=== PATIENT | male | born 1990 | race Caucasian/White ===

== ENCOUNTER 2019-07-02 09:28 | Emergency (ER) | payer SELFPAY ==
[~2019-07-02] VITALS: Ht 172 cm; Wt 63.6 kg
--- NOTE | 2019-07-02 09:58 | NUR ---
Patients significant other advises that the patient has been experiencing behavior and anger issues for several months but that episodes have become progressively worse. Patients signifcant other advises that the patient has been experiencing episodes of panic that results in the patient frequently calling her and always wanting to know where she is. The patient advises that he is currently living in [place] and is commuting to [place] on the weekends for work. 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 He advises increased stress with the situation changes and that he is currently living with family members in [place] and does feel safe. When he returns to [place] he stays with his significant other. His significant other advises that they have a house together in [place] and that the location where he stays in [place] is a place where the patient does not need to be. She advises the patient stays with his family of whom are all drug addicts. She advises that the last time the patient smoked methamphetamine was approximately 1 week ago. She advised that she is the only support system that the patient has but that she is starting to fear the patient and wants him to seek help. She advised that she has kids and that the outbursts cannot continue. The patient denies suicidal ideations but the significant other advises the patient calls her frequently and states that he hates his life and that he wants to . Patient advises that he has not been eating or sleeping well and the last time he ate was last night.
[2019-07-02 10:01] LABS: BASOPHILS # (AUTO) 0.1 10^3/uL (0.0-0.1); BASOPHILS % (AUTO) 1 % (0-10); EOSINOPHILS # (AUTO) 0.1 10^3/uL (0.0-0.3); EOSINOPHILS % (AUTO) 1 % (0-10); HEMATOCRIT 42 % (40-54); HEMOGLOBIN 14.2 G/DL (13.3-17.7); LYMPHOCYTES % (AUTO) 24 % (12-44); MEAN CORPUSCULAR HEMOGLOBIN 30 PG (25-34); MEAN CORPUSCULAR HGB CONC 34 G/DL (32-36); MEAN CORPUSCULAR VOLUME 87 FL (80-99); MEAN PLATELET VOLUME 9.2 FL (7.4-10.4); MONOCYTES # (AUTO) 0.7 X 10^3 (0.0-1.0); MONOCYTES % (AUTO) 9 % (0-12); NEUTROPHILS # (AUTO) 5.4 X 10^3 (1.8-7.8); NEUTROPHILS % (AUTO) 65 % (42-75); PLATELET COUNT 271 10^3/uL (130-400); RED CELL DISTRIBUTION WIDTH 13.2 % (10.0-14.5); WHITE BLOOD COUNT 8.4 10^3/uL (4.3-11.0)
[2019-07-02 10:04] LABS: BILIRUBIN,URINE NEGATIVE (NEGATIVE); CLARITY,URINE CLEAR; COLOR,URINE YELLOW; GLUCOSE, URINE (UA) NEGATIVE (NEGATIVE); KETONES,URINE NEGATIVE (NEGATIVE); LEUKOCYTE ESTERASE ,URINE 1+ (NEGATIVE); NITRITE,URINE NEGATIVE (NEGATIVE); PH,URINE 5 (5-9); PROTEIN,URINE 1+ (NEGATIVE)
--- NOTE | 2019-07-02 10:10 | NUR ---
Patients significant other left the department advised she was going to the car or to the waiting room while Dr. Small examined the patient, she felt he might be more forthcoming with information if she was not in the room.
--- NOTE | 2019-07-02 10:15 | NUR ---
The patient was advised by Dr. Small that it would take 30minutes to and hour for results to return and the patient then stated he needed to go back to [place] and left the department.
[2019-07-02 10:16] LABS: ALANINE AMINOTRANSFERASE 14 U/L (0-55); ALBUMIN 4.4 GM/DL (3.2-4.5); ALKALINE PHOSPHATASE 68 U/L (40-136); BILIRUBIN,TOTAL 0.5 MG/DL (0.1-1.0); BUN/CREATININE RATIO 10; CALCIUM 9.2 MG/DL (8.5-10.1); CARBON DIOXIDE 22 MMOL/L (21-32); CHLORIDE 109 MMOL/L (98-107); CREATININE SERUM 0.81 MG/DL (0.60-1.30); GFR ESTIMATED > 60; GLUCOSE 92 MG/DL (70-105); POTASSIUM 3.8 MMOL/L (3.6-5.0); SALICYLATE < 5.0 MG/DL (5.0-20.0); SODIUM 140 MMOL/L (135-145)
[2019-07-02 10:34] LABS: ACETAMINOPHEN < 10 UG/ML (10-30)
[2019-07-02 10:36] LABS: TSH (THYROID ANALYZER) 1.73 UIU/ML (0.35-4.94)
[2019-07-02 10:37] LABS: AMPHETAMINE SCREEN, URINE POSITIVE (NEGATIVE); CANNABINOID SCREEN, URINE POSITIVE (NEGATIVE); METHAMPHETAMINE SCREEN URINE S POSITIVE (NEGATIVE)
[2019-07-02 10:38] LABS: BARBITURATE SCREEN URINE NEGATIVE (NEGATIVE); BENZODIAZEPINES SCREEN URINE NEGATIVE (NEGATIVE); COCAINE SCREEN URINE NEGATIVE (NEGATIVE); METHADONE STAT NEGATIVE (NEGATIVE); OPIATE SCREEN URINE NEGATIVE (NEGATIVE); OXYCODONE STAT NEGATIVE (NEGATIVE); PROPOXYPHENE STAT NEGATIVE (NEGATIVE); TRICYCLIC ANTIDEPRESSANTS SCRE NEGATIVE (NEGATIVE)
--- NOTE | 2019-07-02 10:40 | NUR ---
The patient returned with his significant other to the ER for further evaluation.
[2019-07-02 10:41] LABS: BACTERIA,URINE FEW /HPF
[2019-07-02 10:42] LABS: SQUAMOUS EPITHELIAL CELL,UR RARE /HPF
--- NOTE | 2019-07-02 11:06 | NUR ---
[facility] will be sending someone out for evaluation eta 30 minutes.
--- NOTE | 2019-07-02 11:48 | NUR ---
[employer] sales representative Jacey has arrived.
--- NOTE | 2019-07-02 12:05 | NUR ---
Patient spoke with [facility] and denies suicidal ideations and states he only wanted the contact information for services. Patient left the department shortly after the field sales trainer left the room.
[2019-07-02 12:17] VITALS: BP 131/97
--- OUTSIDE RECORDS SUMMARY | 2019-07-22 20:15 | XMS REPORT | Continuity of Care Document ---
Author Organization Unknown Address Unknown Phone Unavailable Allergies There is no data. Medications There is no data. Problems There is no data. Procedures There is no data. Results Test Result Range Complete blood count (CBC) with automated white blood cell (WBC) differential - 07/02/19 09:45 Blood leukocytes automated count (number/volume) 8.4 10*3/uL 4.3-11.0 Blood erythrocytes automated count (number/volume) 4.78 10*6/uL 4.35-5.85 Venous blood hemoglobin measurement (mass/volume) 14.2 g/dL 13.3-17.7 Blood hematocrit (volume fraction) 42 % 40-54 Automated erythrocyte mean corpuscular volume 87 [foz_us] 80-99 Automated erythrocyte mean corpuscular hemoglobin (mass per erythrocyte) 30 pg 25-34 Automated erythrocyte mean corpuscular hemoglobin concentration measurement (mass/volume) 34 g/dL 32-36 Automated erythrocyte distribution width ratio 13.2 % 10.0- 14.5 Automated blood platelet count (count/volume) 271 10*3/uL 130-400 Automated blood platelet mean volume measurement 9.2 [foz_us] 7.4-10.4 Automated blood neutrophils/100 leukocytes 65 % 42-75 Automated blood lymphocytes/100 leukocytes 24 % 12-44 Blood monocytes/100 leukocytes 9 % 0-12 Automated blood eosinophils/100 leukocytes 1 % 0-10 Automated blood basophils/100 leukocytes 1 % 0-10 Blood neutrophils automated count (number/volume) 5.4 10*3 1.8-7.8 Blood lymphocytes automated count (number/volume) 2.0 10*3 1.0-4.0 Blood monocytes automated count (number/volume) 0.7 10*3 0.0- 1.0 Automated eosinophil count 0.1 10*3/uL 0.0-0.3 Automated blood basophil count (count/volume) 0.1 10*3/uL 0.0-0.1 Comprehensive metabolic panel - 07/02/19 09:45 Serum or plasma sodium measurement (moles/volume) 140 mmol/L 135-145 Serum or plasma potassium measurement (moles/volume) 3.8 mmol/L 3.6-5.0 Serum or plasma chloride measurement (moles/volume) 109 mmol/L 98-107 Carbon dioxide 22 mmol/L 21-32 Serum or plasma anion gap determination (moles/volume) 9 mmol/L 5-14 Serum or plasma urea nitrogen measurement (mass/volume) 8 mg/dL 7-18 Serum or plasma creatinine measurement (mass/volume) 0.81 mg/dL 0.60-1.30 Serum or plasma urea nitrogen/creatinine mass ratio 10 NRG Serum or plasma creatinine measurement with calculation of estimated glomerular filtration rate > NRG Serum or plasma glucose measurement (mass/volume) 92 mg/dL 70-105 Serum or plasma calcium measurement (mass/volume) 9.2 mg/dL 8.5-10.1 Serum or plasma total bilirubin measurement (mass/volume) 0.5 mg/dL 0.1-1.0 Serum or plasma alkaline phosphatase measurement (enzymatic activity/volume) 68 U/L 40-136 Serum or plasma aspartate aminotransferase measurement (enzymatic activity/volume) 19 U/L 5-34 Serum or plasma alanine aminotransferase measurement (enzymatic activity/volume) 14 U/L 0-55 Serum or plasma protein measurement (mass/volume) 7.0 g/dL 6.4-8.2 Serum or plasma albumin measurement (mass/volume) 4.4 g/dL 3.2-4.5 CALCIUM CORRECTED 8.9 mg/dL 8.5-10.1 Serum or plasma thyrotropin measurement by detection limit <=0.05 miu/l (units/volume) - 07/02/19 09:45 Serum or plasma thyrotropin measurement by detection limit <=0.05 miu/l (units/volume) 1.73 u[iU]/mL 0.35-4.94 Serum or plasma salicylates measurement (mass/volume) - 07/02/19 09:45 Serum or plasma salicylates measurement (mass/volume) < mg/dL 5.0-20.0 Serum or plasma acetaminophen measurement (mass/volume) - 07/02/19 09:45 Serum or plasma acetaminophen measurement (mass/volume) < ug/mL 10-30 Serum or plasma ethanol measurement (mass/volume) - 07/02/19 09:45 Serum or plasma ethanol measurement (mass/volume) < mg/dL <10 Urine drug screening test - 07/02/19 09:50 Urine phencyclidine detection by screening method NEGATIVE NEGATIVE Urine benzodiazepines detection by screening method NEGATIVE NEGATIVE Urine cocaine detection NEGATIVE NEGATIVE Urine amphetamines detection by screening method POSITIVE NEGATIVE Urine methamphetamine detection by screening method POSITIVE NEGATIVE Urine cannabinoids detection by screening method POSITIVE NEGATIVE Urine opiates detection by screening method NEGATIVE NEGATIVE Urine barbiturates detection NEGATIVE NEGATIVE Screening urine tricyclic antidepressants detection NEGATIVE NEGATIVE Urine methadone detection by screening method NEGATIVE NEGATIVE Urine oxycodone detection NEGATIVE NEGATIVE Urine propoxyphene detection NEGATIVE NEGATIVE Complete urinalysis with reflex to culture - 07/02/19 09:50 Urine color determination YELLOW NRG Urine clarity determination CLEAR NRG Urine pH measurement by test strip 5 5-9 Specific gravity of urine by test strip 1.025 1.016-1.022 Urine protein assay by test strip, semi-quantitative 1+ NEGATIVE Urine glucose detection by automated test strip NEGATIVE NEGATIVE Erythrocytes detection in urine sediment by light microscopy NEGATIVE NEGATIVE Urine ketones detection by automated test strip NEGATIVE NEGATIVE Urine nitrite detection by test strip NEGATIVE NEGATIVE Urine total bilirubin detection by test strip NEGATIVE NEGATIVE Urine urobilinogen measurement by automated test strip (mass/volume) NORMAL NORMAL Urine leukocyte esterase detection by dipstick 1+ NEGATIVE Automated urine sediment erythrocyte count by microscopy (number/high power field) NONE NRG Automated urine sediment leukocyte count by microscopy (number/high power field) [HPF] NRG Bacteria detection in urine sediment by light microscopy FEW NRG Squamous epithelial cells detection in urine sediment by light microscopy RARE NRG Crystals detection in urine sediment by light microscopy NONE NRG Casts detection in urine sediment by light microscopy NONE NRG Mucus detection in urine sediment by light microscopy LARGE NRG Complete urinalysis with reflex to culture NO NRG Encounters ACCT No. Visit Date/Time Discharge Status Pt. Type Provider Facility Loc./Unit Complaint [id number] 07/02/2019 09:29:00 07/02/2019 12:19:00 DIS Emergency JAMEY CHAND DO [facility] ER BEHAVIORAL/ANGER ISSUES
--- NOTE | 2019-08-05 18:22 | ED Psychosocial ---
General Chief Complaint: Psych/Social Disorder Stated Complaint: BEHAVIORAL/ANGER ISSUES Nursing Triage Note: Patient has been experiencing behavior issues that have become progressively worse. See notes. Source: patient (WANTS GIRLFRIEND TO DO MOST OF TALKING FOR PT), other (GIRLFR IEND DOES MOST OF TALKING, PT DOES NOT WANT TO TALK) History of Present Illness Date Seen by Provider: Jul 02, 2019 Time Seen by Provider: 09:50 Initial Comments PT ARRIVES VIA EMS WITH GIRLFRIEND PT STATES HE LIVES IN [place], HAS BEEN COMING HERE ON WEEKENDS, HIS GIRLFRIEND RECENTLY MOVED HERE--THEY HAVE BEEN TOGETHER A YEAR. STATES HE "IS FINE, THEN NOT FINE" AND "HAS OUTBURSTS" GIRLFRIEND REPORTS THAT HE CALLS HER CONSTANTLY TO "CHECK IN ON HER" GIRLFRIEND REPORTS THAT "SHE IS STARTING TO GET SCARED OF HIM" SHE ALSO REPORTS THAT HE REPEATEDLY TELLS HER THAT HE HATES HIS LIFE AND SOMETIMES HE WANTS TO --PT DENIES THIS TO ME. 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 STATES THAT ALL OF HIS FAMILY IN [place] ARE ON DRUGS, AND HE CAN'T STOP USING IF HE IS AROUND THEM STATES HE CANNOT MOVE HERE TO [place] NOW, DUE TO HIS JOB IN [place]. GIRLFRIEND STATES SHE MOVED HERE TO GET AWAY FROM ALL OF THAT, AND STATES THAT SHE CAN'T HAVE HER YOUNG CHILDREN AROUND ALL OF THIS. STATES "NOW HE HAS 3 DIFFERENT PERSONALITIES AND NOW IT'S MINUTES" "HE GETS ANGRY AND MAD AND THEN CHANGES INTO A LITTLE BABY, AND STARTS SHAKING, THEN HE DOESN'T REMEMBER BEING ANGRY, AND IT KEEPS REPEATING IN CYCLES" PT DENIES USING METH IV, STATES THAT HE HAD TRIED TO GO FOR 2 WEEKS WITHOUT USING, BUT FOR THE LAST 2 WEEKS HE HAS USED IT EVERY DAY. STATES HE ALSO USES THC ON DAILY BASIS. PT DENIES ALCOHOL USE. Allergies and Home Medications Patient Home Medication List Home Medication List Reviewed: Yes Review of Systems Constitutional: see HPI Psychiatric/Neurological: See HPI Past Eqniobc-[id number]-[id number] Hx Past Med/Social Hx: Reviewed and Corrections made Patient Social History Alcohol Use: Denies Use Recreational Drug Use: Yes (THC, METH, DENIES IV USE) Drug of Choice: THC, METH, DENIES IV USE Smoking Status: Current Everyday Smoker (1 PPD) Type Used: Cigarettes (1 PPD) Recent Foreign Travel: No Contact w/Someone Who Travel: No Recent Infectious Disease Expo: No Recent Hopitalizations: No Seasonal Allergies Seasonal Allergies: No Past Medical History Surgeries: No Respiratory: No Cardiac: No Neurological: No Genitourinary: No Gastrointestinal: No Musculoskeletal: No Endocrine: No HEENT: No Cancer: No Psychosocial: Yes (POLYSUBSTANCE ABUSE) Anxiety Integumentary: No Blood Disorders: No Adverse Reaction/Blood Tranf: No Physical Exam Capillary Refill : Less Than 3 Seconds Height, Weight, BMI Height: '" Weight: lbs. oz. kg; 21.00 BMI Method: General Appearance: thin, other (ANXIOUS, CONSTANT MOVEMENTS, VERY EMOTIONALLY LABILE, CRYING AT TIMES. 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 II-XII nml as tested, no motor/sensory deficits, alert, oriented x 3 Appearance/Memory: disheveled Thoughts/Hallucinations: no apparent hallucination Skin: normal color, warm/dry Progress/Results/Core Measures Results/Orders Blood Pressure Mean: 108 Progress Progress Note : Progress Note 1010--PT LEFT THE ER, STATING HE HAS TO GET BACK TO [place] 1035--PT IS BACK IN ROOM NOW, AND IS AGREEABLE TO TESTING AND TRYING TO GET HELP 1148--[facility] IS HERE 1158--GREGG , CRISIS ASBESTOS 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 SHE HAS GIVEN HIM INFORMATION ABOUT SERVICES AVAILABLE. 1200--BOTH PT AND GIRLFRIEND LEFT THE ER, WITHOUT INSTRUCTIONS, AND BOTH LEFT AND WALKED OUT DOWN DIFFERENT HALLWAYS Initial ECG Impression Date: Jul 02, 2019 Initial ECG Impression Time: 09:42 Initial ECG Rate: 83 Initial ECG Rhythm: Normal Sinus Initial ECG Comparisson: No Previous ECG Available Departure Impression Primary Impression: Methamphetamine addiction Additional Impressions: Labile mood Marijuana use Disposition: 01 HOME, SELF-CARE Condition: Improved Departure-Patient Inst. Referrals: NO,LOCAL PHYSICIAN (PCP) Primary Care Physician JAMEY CHAND DO Aug 05, 2019 18:22
== END 2019-07-02 12:19 | disposition home or self-care (01) ==
LOC: ER 09:29
DX: F15.20 Other stimulant dependence, uncomplicated (principal); R45.86 Emotional lability; F12.90 Cannabis use, unspecified, uncomplicated; F17.210 Nicotine dependence, cigarettes, uncomplicated; F41.9 Anxiety disorder, unspecified
CPT/HCPCS: 36415; 80053; 80306; 80320; 80329; 81000; 84443; 85025; 93005